=== PATIENT | female | born 1995 | race American Indian/Alaskan Native ===

== ENCOUNTER 2018-01-24 06:39 | Emergency (ER) | payer OTHER ==
[2018-01-24 07:03] VITALS: BP 149/89
--- NOTE | 2018-01-24 08:41 | XRay Report ---
LEFT ANKLE, 3 views: History: left ankle pain. Bone mineralization is normal. No acute osseous abnormality or joint pathology is identified. The soft tissues are unremarkable. IMPRESSION: Unremarkable left ankle.
--- NOTE | 2018-01-24 08:41 | XRay Report ---
RIGHT RIBS, 3 VIEWS: History: pain. Routine views of the rib cage demonstrate normal mineralization with no significant contour abnormalities, fractures or destructive lesions. PA view of the chest demonstrates no underlying cardiopulmonary abnormalities, fluid or pneumothorax. IMPRESSION: No displaced right rib fracture is identified on x-ray.
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
[2018-01-24] MEDS ORDERED: MOTRIN PO ONE (09:13)
[2018-01-24] MEDS ORDERED: TRIPLE ANTIBIOTIC TP ONE (09:14)
[2018-01-24] MEDS ORDERED: BOOSTRIX IM ONE (09:18)
== END 2018-01-24 09:35 | disposition home or self-care (01) ==
LOC: ED 06:39
DX: S96.912A Strain of unspecified muscle and tendon at ankle and foot level, left foot, initial encounter (principal); S30.811A Abrasion of abdominal wall, initial encounter; S50.811A Abrasion of right forearm, initial encounter; E66.01 Morbid (severe) obesity due to excess calories; V09.9XXA Pedestrian injured in unspecified transport accident, initial encounter; Y93.89 Activity, other specified; Y92.89 Other specified places as the place of occurrence of the external cause; Y99.8 Other external cause status
CPT/HCPCS: 90471; 90715; 99284; A6250

== ENCOUNTER 2020-06-19 22:49 | Emergency (ER) | payer OTHER ==
[2020-06-20 02:13] VITALS: BP 142/82
--- NOTE | 2020-06-20 03:18 | XRay Report ---
CERVICAL SPINE 3 VIEWS 0241 INDICATION: Neck pain COMPARISON: None available. FINDINGS: On lateral projections detail is reduced in the lower cervical spine. No fractures or sublu xations are obvious. No soft tissue swelling is seen. Disc spaces are maintained. Mild loss of lordos is is noted. RIGHT KNEE 3 VIEWS 0247 INDICATION: right knee pain COMPARISON: None available. FINDINGS: Mild patellofemoral and medial degenerative changes are seen. No fractures or dislocations are noted. RIGHT TIBIA FIBULA 2 VIEWS 0246 INDICATION: Right leg pain COMPARISON: None available. FINDINGS: No fractures or dislocations are seen. RIGHT ANKLE 3 VIEWS 0245 INDICATION: Right ankle pain COMPARISON: None available. FINDINGS: Medial soft tissue swelling is seen. No fractures or dislocations are noted. Minimal ankle degenerative changes are seen. Signer Name: Davidson Carrillo MD Signed: 06/20/2020 3:13 AM Workstation Name: [id number]
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
[2020-06-20] MEDS ORDERED: oxyCODONE /ACETAMINOPHEN 5-325MG TAB PO ONE (04:48)
[2020-06-20] MEDS ORDERED: IBUPROFEN 600 MG TAB PO ONE (04:48)
[2020-06-20] MEDS ORDERED: ONDANSETRON 4 MG ODT TAB PO ONE (04:48)
== END 2020-06-20 05:47 | disposition home or self-care (01) ==
LOC: ED 22:49
DX: S93.401A Sprain of unspecified ligament of right ankle, initial encounter (principal); S83.91XA Sprain of unspecified site of right knee, initial encounter; M62.830 Muscle spasm of back; Z79.1 Long term (current) use of non-steroidal anti-inflammatories (NSAID); Z79.899 Other long term (current) drug therapy; V49.49XA Driver injured in collision with other motor vehicles in traffic accident, initial encounter; Y93.89 Activity, other specified; Y92.410 Unspecified street and highway as the place of occurrence of the external cause; Y99.8 Other external cause status
CPT/HCPCS: 72040; Q0162

== ENCOUNTER 2021-06-24 08:10 | Emergency (ER) | payer SELFPAY ==
[2021-06-24 09:33] VITALS: BP 148/67
[2021-06-24] MEDS ORDERED: FAMOTIDINE 20 MG TAB PO ONE (10:45)
[2021-06-24] MEDS ORDERED: ACETAMINOPHEN 325 MG TAB PO ONE (10:45)
--- NOTE | 2021-06-24 10:46 | Emergency Department Report ---
ED Abdominal Pain HPI - General Chief Complaint: Abdominal Pain Stated Complaint: ABDOMINAL PAIN Time Seen by Provider: 06/24/21 10:24 Source: patient Mode of arrival: Ambulatory Limitations: No Limitations - History of Present Illness Initial Comments: 26-year-old female who denies any significant past medical history presents to the ER today with complaints of left upper quadrant pain and constipation. Patient states that she has not had a bowel movement in 8 days. She states that that is not typical for her. She usually has a bowel movement every day. She reports some mild nausea but no vomiting. She states that she has tried adhp-hwk-lywgmrg stool softeners and has tried increasing her water intake without much results. She denies any recent diet changes. She denies any abdominal surgeries in the past. Her last menstrual cycle was in May 2021. She denies any UTI or any abnormal vaginal symptoms. MD Complaint: abdominal pain -: days(s) (8) - Related Data Previous Rx's Medication Instructions Recorded Last Taken Type Cyclobenzaprine [Flexeril 10 MG 10 mg PO TID PRN #15 tablet 01/24/18 Unknown Rx TAB] Ibuprofen [Motrin 800 MG tab] 800 mg PO Q8HR PRN #15 tablet 01/24/18 Unknown Rx Cyclobenzaprine [Flexeril] 10 mg PO TID PRN #21 tablet 06/20/20 Unknown Rx Ibuprofen [Motrin] 800 mg PO Q8HR PRN #30 tablet 06/20/20 Unknown Rx Docusate Sodium [Colace] 100 mg PO BID #30 capsule 06/24/21 Unknown Rx Famotidine [Pepcid] 20 mg PO BID #30 tablet 06/24/21 Unknown Rx Allergies Allergy/AdvReac Type Severity Reaction Status Date / Time No Known Allergies Allergy Unverified 01/24/18 07:03 ED Review of Systems ROS: Stated complaint: ABDOMINAL PAIN Other details as noted in HPI Comment: All other systems reviewed and negative Constitutional: denies: chills, fever Eyes: denies: eye pain, eye discharge, vision change ENT: denies: ear pain, throat pain Respiratory: denies: cough, shortness of breath, SOB with exertion, SOB at rest, wheezing Cardiovascular: denies: chest pain, palpitations Gastrointestinal: abdominal pain, nausea, constipation. denies: diarrhea, hematemesis, hematochezia Genitourinary: denies: urgency, dysuria, frequency, hematuria, discharge, abnormal menses, dyspareunia Musculoskeletal: denies: back pain, joint swelling, arthralgia Skin: denies: rash, lesions, change in color, change in hair/nails, pruritus Neurological: denies: headache, weakness, numbness, paresthesias, confusion, vertigo Psychiatric: denies: anxiety, depression, auditory hallucinations, visual hallucinations, homicidal thoughts, suicidal thoughts Hematological/Lymphatic: denies: easy bleeding, easy bruising, swollen glands ED Past Medical Hx - Past Medical History Additional medical history: Morbid Obesity - Social History Smoking Status: Never Smoker Substance Use Type: None - Medications Home Medications: Home Medications Medication Instructions Recorded Confirmed Last Taken Type Cyclobenzaprine [Flexeril 10 MG 10 mg PO TID PRN #15 tablet 01/24/18 Unknown Rx TAB] Ibuprofen [Motrin 800 MG tab] 800 mg PO Q8HR PRN #15 tablet 01/24/18 Unknown Rx Cyclobenzaprine [Flexeril] 10 mg PO TID PRN #21 tablet 06/20/20 Unknown Rx Ibuprofen [Motrin] 800 mg PO Q8HR PRN #30 tablet 06/20/20 Unknown Rx Docusate Sodium [Colace] 100 mg PO BID #30 capsule 06/24/21 Unknown Rx Famotidine [Pepcid] 20 mg PO BID #30 tablet 06/24/21 Unknown Rx ED Physical Exam - General Limitations: No Limitations General appearance: alert, in no apparent distress, obese - Head Head exam: Present: atraumatic, normocephalic, normal inspection - Neck Neck exam: Present: normal inspection, full ROM. Absent: meningismus - Respiratory Respiratory exam: Present: normal lung sounds bilaterally. Absent: respiratory distress, wheezes, rales, rhonchi - Cardiovascular Cardiovascular Exam: Present: regular rate, normal rhythm, normal heart sounds - GI/Abdominal GI/Abdominal exam: Present: soft, tenderness (Mild tenderness to palpation left upper quadrant without any guarding or rebound.). Absent: distended, guarding, rebound - Neurological Exam Neurological exam: Present: alert, oriented X3, CN II-XII intact, normal gait - Psychiatric Psychiatric exam: Present: normal affect, normal mood - Skin Skin exam: Present: intact ED Course Vital Signs 06/24/21 09:32 Temperature 98.4 F Pulse Rate 56 L Respiratory 17 Rate Blood Pressure 148/67 O2 Sat by Pulse 100 Oximetry ED Medical Decision Making - Lab Data Result diagrams: 06/24/21 11:20 06/24/21 11:20 - Radiology Data Radiology results: report reviewed Patient: STEFANY ERNANDEZ MR#: [id number] 9 : 1995 Acct:[id number] Age/Sex: 26 / F ADM Date: 06/24/21 Loc: ED Attending Dr: Ordering Physician: BRYANT RODRIGUEZ Date of Service: 06/24/21 Procedure(s): XR abdomen 1V ap Accession Number(s): [id number] cc: BRYANT RODRIGUEZ Fluoro Time In Minutes: ABDOMEN 1 VIEW(S) INDICATION / CLINICAL INFORMATION: abd pain/constipation HCG ordered 10:44. COMPARISON: None available. FINDINGS: TUBES / LINES: None. BOWEL GAS PATTERN: No significant abnormality. Normal stool in the colon. FREE AIR / EXTRALUMINAL GAS: None seen. ADDITIONAL FINDINGS: No significant additional findings. IMPRESSION: No significant abnormality. Signer Name: Karson Issa Jr, MD Signed: 06/24/2021 12:28 PM Workstation Name: [id number] Transcribed By: TTR Dictated By: KARSON ISSA JR, MD Electronically Authenticated By: KARSON ISSA JR, MD Signed Date/Time: 06/24/211227 DD/ 1227 - Medical Decision Making 26-year-old female who denies any significant past medical history presents to the ER today with complaints of left upper quadrant pain and constipation. Patient states that she has not had a bowel movement in 8 days. She states that that is not typical for her. She usually has a bowel movement every day. She reports some mild nausea but no vomiting. She states that she has tried hgha-zjc-tcmewke stool softeners and has tried increasing her water intake without much results. She denies any recent diet changes. She denies any abdominal surgeries in the past. Her last menstrual cycle was in May 2021. She denies any UTI or any abnormal vaginal symptoms. All labs reviewed - CBC shows female with a hemoglobin of 8.6, work-up otherwise unremarkable. KUB shows normal stool but otherwise nothing acute. Patient currently resting comfortably on her phone. She actually states that she is ready to leave as her ride is waiting for outside. She has a nonsurgical abdominal exam. She is not toxic or ill-appearing. She is neurologically intact. She appears hemodynamically stable. Discussed results with patient, she does admit that she recently had a long menstrual cycle for about a month which explains the hemoglobin of 8.6. Recommend that she start taking feid-zbq-uvcnaoy iron supplements, but informed her that this could also worsen her constipation. We will give a prescription medication to help with her constipation and also recommend increasing her water and fiber intake. She will also be placed on Pepcid just in case this could also be related to gastritis. Patient understands all instructions and agree with plan. She will be given referral information to PCP. Patient was stable at time of discharge. Critical care attestation.: If time is entered above; I have spent that time in minutes in the direct care of this critically ill patient, excluding procedure time. ED Disposition Clinical Impression: Left upper quadrant abdominal pain, Constipation, Anemia Disposition: 01 HOME / SELF CARE / HOMELESS Is pt being admited?: No Does the pt Need Aspirin: No Condition: Stable Instructions: Abdominal Pain, Adult, Constipation, Adult, Rrau-rb-Njnt, Abdominal Pain (ED) Additional Instructions: Recommend that you take the stool softeners as prescribed. You can also take MiraLAX from abfh-tai-ybftkuj as instructed. Take the Pepcid as prescribed. I recommend doing the MiraLAX 1-2 times a day for about a week. If your stool become watery you can stop. Increase your water intake. Increase your fiber intake. Your work-up today does show that you are anemic, recommend taking vnbp-nrt-zomffwg iron supplements, but this can worsen your constipation and so you may have to continue taking stool softener with it every day. Follow-up closely with your PCP. Return to the ER if your symptoms worsens in any way. Prescriptions: Docusate Sodium [Colace] 100 mg PO BID #30 capsule Famotidine [Pepcid] 20 mg PO BID #30 tablet Referrals: PRIMARY CAREMD [Primary Care Provider] - 3-5 Days Forms: Work/School Release Form(ED) Time of Disposition: 13:08
[2021-06-24 11:50] LABS: Basophils % (Auto) 0.3 % (0.0-1.8); Eosinophils % (Auto) 0.4 % (0.0-4.3); Hematocrit 28.3 % (30.3-42.9); Hemoglobin 8.6 gm/dl (10.1-14.3); Lymphocytes # (Auto) 2.4 K/mm3 (1.2-5.4); Lymphocytes % (Auto) 32.1 % (13.4-35.0); Mean Corpuscular HGB Conc 30 % (30-34); Mean Corpuscular Volume 59 fl (79-97); Monocytes # (Auto) 0.3 K/mm3 (0.0-0.8); Monocytes % (Auto) 4.3 % (0.0-7.3); Platelet Count 366 K/mm3 (140-440); Red Blood Count 4.81 M/mm3 (3.65-5.03); Red Cell Distribution Width 19.6 % (13.2-15.2)
[2021-06-24 12:12] LABS: Alanine Aminotransferase 12 units/L (7-56); Albumin 3.9 g/dL (3.9-5); Blood Urea Nitrogen 12 mg/dL (7-17); Calcium 9.3 mg/dL (8.4-10.2); Hemolysis Index 2
[2021-06-24 12:13] LABS: BUN/Creatinine Ratio 24
--- NOTE | 2021-06-24 12:32 | XRay Report ---
ABDOMEN 1 VIEW(S) INDICATION / CLINICAL INFORMATION: abd pain/constipation HCG ordered 10:44. COMPARISON: None available. FINDINGS: TUBES / LINES: None. BOWEL GAS PATTERN: No significant abnormality. Normal stool in the colon. FREE AIR / EXTRALUMINAL GAS: None seen. ADDITIONAL FINDINGS: No significant additional findings. IMPRESSION: No significant abnormality. Signer Name: Karson Davila Jr, MD Signed: 06/24/2021 12:28 PM Workstation Name: [id number]
[2021-06-24 14:21] LABS: Bilirubin,Urine NEG (Negative); Blood,Urine NEG (Negative); Color,Urine Yellow (Yellow); Mucus,Urine 3+ /HPF; Urobilinogen,Urine < 2.0 mg/dL (<2.0)
== END 2021-06-24 13:30 | disposition home or self-care (01) ==
LOC: ED 08:10
DX: R10.12 Left upper quadrant pain (principal); K59.00 Constipation, unspecified; D64.9 Anemia, unspecified
CPT/HCPCS: 36415; 74018; 80053; 81001; 83690; 84703; 85025; 99284

== ENCOUNTER 2021-09-05 08:05 | Emergency (ER) | payer SELFPAY ==
[2021-09-05 08:37] VITALS: BP 144/83
[2021-09-05] MEDS ORDERED: KETOROLAC 10 MG TAB PO ONE (08:47)
--- NOTE | 2021-09-05 09:28 | XRay Report ---
Right knee 3 views INDICATION: Pain FINDINGS: Mild tricompartmental degenerative change with joint space narrowing medial compartment and patellofemoral joint. No acute fracture or dislocation. Signer Name: Castillo Moser MD Signed: 09/05/2021 9:24 AM Workstation Name: [id number]
--- NOTE | 2021-09-05 09:37 | Emergency Department Report ---
ED Extremity Problem HPI - General Chief complaint: Extremity Problem,Nontraumatic Stated complaint: RIGHT KNEE PAIN Time Seen by Provider: 09/05/21 08:38 Source: patient Mode of arrival: Ambulatory Limitations: No Limitations - History of Present Illness Initial comments: 26-year-old obese black female presents to the emergency department for evaluation of 2-day history of right knee pain. She denies injury, but states that when she bends it feels like it is pinching and when she keeps it straight, it feels like it is throbbing. She states pain is 8 out of 10. She denies chest pain, shortness of breath, and hemoptysis. MD Complaint: extremity pain -: Gradual, days(s) (2) Location: right, knee History of Same: No -: No myalgia, No arthralgia, No fever, No associated dyspnea, No associated chest pain Radiation: none Severity scale (0 -10): 10 Quality: aching Consistency: constant Worsens with: other (bending) Associated Symptoms: denies: chest pain, shortness of breath, fever, myalgias, arthralgias - Related Data Previous Rx's Medication Instructions Recorded Last Taken Type Cyclobenzaprine [Flexeril 10 MG 10 mg PO TID PRN #15 tablet 01/24/18 Unknown Rx TAB] Ibuprofen [Motrin 800 MG tab] 800 mg PO Q8HR PRN #15 tablet 01/24/18 Unknown Rx Cyclobenzaprine [Flexeril] 10 mg PO TID PRN #21 tablet 06/20/20 Unknown Rx Ibuprofen [Motrin] 800 mg PO Q8HR PRN #30 tablet 06/20/20 Unknown Rx Docusate Sodium [Colace] 100 mg PO BID #30 capsule 06/24/21 Unknown Rx Famotidine [Pepcid] 20 mg PO BID #30 tablet 06/24/21 Unknown Rx Allergies Allergy/AdvReac Type Severity Reaction Status Date / Time No Known Allergies Allergy Unverified 01/24/18 07:03 ED Review of Systems ROS: Stated complaint: RIGHT KNEE PAIN Other details as noted in HPI Comment: All other systems reviewed and negative Constitutional: denies: chills, fever Eyes: denies: eye pain ENT: denies: ear pain Respiratory: denies: shortness of breath, SOB with exertion, SOB at rest Cardiovascular: denies: chest pain, palpitations, dyspnea on exertion, edema, syncope Endocrine: denies: no symptoms reported Gastrointestinal: denies: abdominal pain, nausea, vomiting Genitourinary: denies: dysuria Musculoskeletal: denies: back pain Skin: denies: rash, lesions Neurological: denies: headache, weakness Psychiatric: denies: anxiety, depression Hematological/Lymphatic: denies: easy bleeding, easy bruising ED Past Medical Hx - Past Medical History Additional medical history: Morbid Obesity - Social History Smoking Status: Never Smoker Substance Use Type: None - Medications Home Medications: Home Medications Medication Instructions Recorded Confirmed Last Taken Type Cyclobenzaprine [Flexeril 10 MG 10 mg PO TID PRN #15 tablet 01/24/18 Unknown Rx TAB] Ibuprofen [Motrin 800 MG tab] 800 mg PO Q8HR PRN #15 tablet 01/24/18 Unknown Rx Cyclobenzaprine [Flexeril] 10 mg PO TID PRN #21 tablet 06/20/20 Unknown Rx Ibuprofen [Motrin] 800 mg PO Q8HR PRN #30 tablet 06/20/20 Unknown Rx Docusate Sodium [Colace] 100 mg PO BID #30 capsule 06/24/21 Unknown Rx Famotidine [Pepcid] 20 mg PO BID #30 tablet 06/24/21 Unknown Rx ED Physical Exam - General Limitations: No Limitations General appearance: alert, in no apparent distress - Head Head exam: Present: atraumatic, normocephalic - Eye Eye exam: Present: normal appearance. Absent: conjunctival injection - Neck Neck exam: Present: normal inspection - Respiratory Respiratory exam: Present: normal lung sounds bilaterally. Absent: respiratory distress, chest wall tenderness - Cardiovascular Cardiovascular Exam: Present: regular rate, normal heart sounds - GI/Abdominal GI/Abdominal exam: Present: soft, normal bowel sounds. Absent: distended, tenderness - Extremities Exam Extremities exam: Present: normal inspection - Expanded Lower Extremity Exam Right Knee exam: Present: normal inspection, tenderness, swelling. Absent: abrasion, ecchymosis, deformity, crepidus, dislocation, erythema, effusion Neuro vascular tendon exam: Absent: no vascular compromise, pulse deficit, abnormal cap refill, motor deficit, sensory deficit, extremity cold to touch Gait: Positive: observed and normal - Back Exam Back exam: Present: normal inspection. Absent: tenderness, CVA tenderness (R), CVA tenderness (L) - Neurological Exam Neurological exam: Present: alert, oriented X3, normal gait - Psychiatric Psychiatric exam: Present: normal affect, normal mood - Skin Skin exam: Present: warm, dry, intact, normal color ED Course Vital Signs 09/05/21 08:35 Temperature 98.7 F Pulse Rate 78 Respiratory 17 Rate Blood Pressure 144/83 O2 Sat by Pulse 100 Oximetry ED Medical Decision Making - Radiology Data Radiology results: report reviewed, image reviewed Right knee xray: Findings: Mild tricompartmental degenerative change with joint space narrowing medial compartment and patellofemoral joint. No acute fracture of dislocation. - Medical Decision Making 36-year-old black female presents to the emergency department for evaluation of right wrist and forearm pain. She states that she fell at home this morning and landed on her right arm. She denies loss of consciousness.She presents with right wrist pain and swelling. Right knee xray without any acute abnormalities. No edema, erythema, or warmth to touch noted, hr wnl, low suspicion for DVT or PE. She is advised to use NSAIDs as needed for pain and follow up with pcp or orthopedics for further evaluation and management. She verbalized understanding of and agreement with plan of care. Critical care attestation.: If time is entered above; I have spent that time in minutes in the direct care of this critically ill patient, excluding procedure time. ED Disposition Clinical Impression: Right knee pain Qualifiers: Chronicity: acute Qualified Code(s): M25.561 - Pain in right knee Disposition: 01 HOME / SELF CARE / HOMELESS Is pt being admited?: No Does the pt Need Aspirin: No Condition: Stable Instructions: How to Use Cold Therapy, [id number]-pl-Hlsx, Musculoskeletal Pain, Acute Knee Pain, Adult, Iegl-bj-Lxma Additional Instructions: Follow-up with primary care provider or orthopedic surgery. Referrals: EMMA DEGROOT MD [Referring] - 3-5 Days JORGE BROCK MD [Staff Physician] - 3-5 Days Forms: Work/School Release Form(ED) Time of Disposition: 09:36
== END 2021-09-05 10:02 | disposition home or self-care (01) ==
LOC: ED 08:05
DX: M25.561 Pain in right knee (principal)
CPT/HCPCS: 99283